=== PATIENT | male | born 1950 | race Caucasian/White ===

== ENCOUNTER 2020-03-21 09:55 | Emergency (ER) | payer MEDICARE, OTHER, SELFPAY ==
[2020-03-21 10:08] VITALS: BP 193/96; PULSE 66; RESP 15; TEMP 36.4; O2SAT 98; BMI 24.3
--- NOTE | 2020-03-21 10:14 | PC.NURSE ---
Back pain after lifting shrimp pot 3 days ago.
--- NOTE | 2020-03-21 10:21 | ED.BACK ---
HPI - Back Pain/Injury General Chief Complaint: Back Pain/Injury Stated Complaint: 3X DAYS BACK PAIN Time Seen by Provider: 03/21/20 10:21 Source: patient Limitations: no limitations History of Present Illness HPI Narrative: 69-year-old gentleman with a history tremors, hypertension and occasional low back pain presents 3 days after any back injury. He was on his boat, pulling up a shrimp pot and felt a pull/tug in his low back. Was not immediately debilitating but has gotten significantly worse over the last 72 hours. Ice has but somewhat helpful. He took 2 old Vicodin this morning and had no relief. Complains of severe low back pain radiating into both sides of his buttocks and then down his left leg. Describes no change to urine or bowel habits. No specific numbness or weakness. He does have an antalgic gait but is able to use both legs and has full strength on both sides. He denies any fevers, chills, abdominal pain, vomiting, diarrhea, chest pain, dyspnea, palpitations and no skin rashes or changes. Related Data Home Medications Medication Instructions Recorded Confirmed propranolol #0 03/05/16 Previous Rx's Medication Instructions Recorded hydrocodone-acetaminophen 0 tab PO Q6HP PRN #15 tab 03/05/16 ibuprofen 600 mg PO Q8HP PRN #20 tab 03/05/16 methocarbamol 500 mg PO QIDP PRN #14 tab 03/05/16 prednisone 40 mg PO [facility] 4 Days #0 tab 03/05/16 dexamethasone 10 mg PO DAILY #5 tab 03/21/20 oxycodone-acetaminophen 1 tab PO Q6H PRN #20 tab 03/21/20 polyethylene glycol 3350 [Miralax] 17 gram PO DAILY PRN #30 each 03/21/20 Allergies Allergy/AdvReac Type Severity Reaction Status Date / Time No Known Drug Allergies Allergy Verified 03/21/20 10:11 Review of Systems Review of Systems Narrative: Remainder of review of systems including constitutional, ENT, cardiovascular, respiratory, GI, , musculoskeletal, skin, neurologic and psychiatric systems reviewed and are unremarkable except as noted in HPI. Patient History Medical History Hypertension (Acute) Tremor (Acute) Social History Smoking Status: Unknown if ever smoked Smoking Status: Unknown if ever smoked alcohol intake frequency: a few times a week Substance Use Type: does not use Exam Narrative Exam Narrative: General: Alert appropriate in no acute distress Respiratory: Able to speak in full sentences, no obvious respiratory distress Skin: No obvious rashes, warm and dry Neurologic: Grossly intact no obvious asymmetries or abnormalities in upper extremities. Lower extremities he has 2+ symmetrical reflexes patellas and ankle jerks bilaterally. No sensory loss in is neurovascularly intact in lower extremities. Spine: Increasing tenderness over the lumbar spine without redness or specific midline point tenderness with bilateral lumbar paraspinous muscle spasm left greater than right. Low back pain is exacerbated by straight leg raising bilaterally left significantly more than right. He is able to stand with full strength on his left leg with stabilizing support as well as his right leg with stabilize. Psych, appropriate insight and affect, cooperative Initial Vital Signs Initial Vital Signs: Vital Signs Temperature 97.6 F 03/21/20 10:08 Pulse Rate 66 03/21/20 10:08 Respiratory Rate 15 03/21/20 10:08 Blood Pressure 193/96 H 03/21/20 10:08 Pulse Oximetry 98 03/21/20 10:08 Course Orders Ordered: Discontinued Medications Dexamethasone (Decadron) 10 mg PO NOW ONE Stop: 03/21/20 10:52 Ketorolac Tromethamine (Toradol) 30 mg IM NOW ONE Stop: 03/21/20 10:52 Vital Signs Vital signs: Vital Signs - 8 hr 03/21/20 10:08 Temperature 97.6 F Pulse Rate 66 Respiratory Rate 15 Blood Pressure 193/96 H Pulse Oximetry 98 MDM - Back Pain/Injury MDM Narrative Medical decision making narrative: Acute musculoskeletal back pain day 3 after injury. No red flags to suggest imaging would be appropriate. No suggestion of epidural abscess, cauda equinus syndrome or acute disc herniation. See discharge instructions for recommendations and medication prescribed. Patient safe for home discharge Discharge Plan Departure Patient Disposition: Home Clinical Impression: Acute back pain with radiculopathy Instructions: DI for Back Pain With Sciatica Activity Restrictions/Additional Instructions: Thank you for coming in today The description of your injury sounds very much like the usual type of low back pain with significant muscle spasm squeezing on nerves that she down your leg. You do not have any red flag warning signs for infection around your spine or anything that would need immediate surgery You are going to get better and today is likely going to be the worst pain that you are experiencing. It can take up to 6 weeks to get all the way back to baseline but you should feel significantly improved within 1 week. For severe inflammation I am going to have you take 3 days of Decadron, 10 mg daily. Your 1st dose was given in the emergency room today Using 400 mg of ibuprofen (2 [id number] pills) and 1 Tylenol every 6 hours can be very helpful in controlling moderate pain. For severe pain, using ibuprofen 400 mg and 1 Percocet can be helpful Percocet is a narcotic any should not drive or operate heavy machinery after taking a narcotic. Narcotics will also make you constipated. Any day that you take a Percocet I would also recommend 17 g, 1 cap full, of MiraLax in a large glass of water tea or coffee. Back pain is bad enough that you do not want to also be dealing with constipation Please [facility] your [facility]. If your pain is significantly improved then you can consider cancelling. If you are still hurting it is nice to know that you already have follow-up I hope you feel better Prescriptions: New dexamethasone 4 mg tablet 10 mg PO DAILY Qty: 5 RF: 0 oxycodone-acetaminophen 5-325 mg tablet 1 tab PO Q6H PRN (Reason: pain) Qty: 20 RF: 0 polyethylene glycol 3350 [Miralax] 17 gram powder in packet 17 gram PO DAILY PRN (Reason: constipation) Qty: 30 RF: 0 No Action methocarbamol 500 MG tablet 500 mg PO QIDP PRNQty: 14 RF: 0 hydrocodone-acetaminophen 5 MG/325 MG tablet 0 tab PO Q6HP PRNQty: 15 RF: 0 prednisone 20 MG tablet 40 mg PO [facility] 4 Days Qty: 0 RF: 0 ibuprofen 600 MG tablet 600 mg PO Q8HP PRNQty: 20 RF: 0 propranolol 10 mg tablet Qty: 0 RF: 0 Referrals: Anna Cerrato DO [Primary Care Provider] -
[2020-03-21] MEDS: dexAMETHasone 4 MG TABLET 10 MG PO (11:00)
[2020-03-21] MEDS: KETOROLAC 60 MG/2 ML VIAL 30 MG IM (11:00)
== END 2020-03-21 11:11 | disposition home or self-care (01) ==
PROVIDERS: Emergency Provider Emergency Medicine; PCP Family Medicine
DX: M54.16 Radiculopathy, lumbar region (principal); I10 Essential (primary) hypertension
CPT/HCPCS: 99283; J1885

== ENCOUNTER 2021-04-13 11:51 | Emergency (ER) | payer MEDICARE, OTHER, SELFPAY ==
[2021-04-13 11:59] VITALS: BP 204/102; PULSE 60; RESP 14; TEMP 36.4; O2SAT 98; BMI 25.4
--- NOTE | 2021-04-13 12:16 | ED_ITS ---
HPI - Dental/Oral General Chief complaint: Dental/Oral Stated complaint: Broken Tooth, Facial Swelling Left Side Time Seen by Provider: 04/13/21 12:08 Source: patient Mode of arrival: Ambulatory Limitations: no limitations History of Present Illness HPI Narrative: Patient complains of pain swelling to the left upper mouth. Had a root canal attempt 1 month ago with fractured tooth in [place]. Has not returned to the provider. Yesterday started with swelling to the left cheek. Denies any diabetes. No fever chills. No trouble breathing or swallowing. Blood pressure noted. He states his family doctor 1 month ago changed from lisinopril to propanolol. Denies any chest pain. No headache. No dyspnea no recent illness Teeth map: 1. Related Data Home Medications Medication Instructions Recorded Confirmed propranolol 10 mg tablet #0 03/05/16 Previous Rx's Medication Instructions Recorded hydrocodone 5 mg-acetaminophen 325 0 tab PO Q6HP PRN #15 tab 03/05/16 mg tablet ibuprofen 600 mg tablet 600 mg PO Q8HP PRN #20 tab 03/05/16 methocarbamol 500 mg tablet 500 mg PO QIDP PRN #14 tab 03/05/16 prednisone 20 mg tablet 40 mg PO [facility] 4 Days #0 tab 03/05/16 dexamethasone 4 mg tablet 10 mg PO DAILY #5 tab 03/21/20 oxycodone-acetaminophen 5 mg-325 1 tab PO Q6H PRN #20 tab 03/21/20 mg tablet polyethylene glycol 3350 17 gram 17 gram PO DAILY PRN #30 each 03/21/20 oral powder packet (Miralax) penicillin V potassium 500 mg 500 mg PO QID #40 tab 04/13/21 tablet Allergies Allergy/AdvReac Type Severity Reaction Status Date / Time No Known Drug Allergies Allergy Verified 04/13/21 11:58 Review of Systems Review of Systems Narrative: GENERAL: Denies chills, fatigue, malaise, fever, sweats. HEENT: Denies sinus pain, ear pain, sore throat, positive dental pain RESPIRATORY: Denies dyspnea, cough CARDIOVASCULAR: Denies chest pain, palpitations GASTROINTESTINAL: Denies nausea, vomiting, abdominal pain : Denies dysuria, frequency, hematuria MUSCULOSKELETAL: denies muscle or bony pain SKIN: Denies rash, skin lesions NEUROLOGIC: Denies weakness, numbness ROS Unobtainable: All systems reviewed & are unremarkable except as noted in HPI and below Patient History Medical History (Updated 04/13/21 @ 12:22 by Ariel De La Cruz MD) Hypertension Tremor Social History Smoking Status: Unknown if ever smoked Smoking Status: Unknown if ever smoked alcohol intake frequency: holidays/special occasions only Substance Use Type: does not use Exam Narrative Exam Narrative: GENERAL: in no distress, not toxic not dyspneic HEAD: Normocephalic. EYES: Pupils equal round No scleral icterus. ENT: Mucous membranes moist. Palpable tenderness above tooth 14. Tooth is fractured. Has dental caries as well. No fluctuance or abscess to drain. Mild left cheek edema. No tongue elevation. No drooling. Airway intact. Speaking full sentences NECK: Trachea midline. CARDIOVASCULAR: Regular rate and rhythm without murmurs RESPIRATORY: Clear to auscultation. Breath sounds equal bilaterally. No wheezes, rales, or rhonchi. NEURO: AOx4. SKIN: Warm and dry PSYCH: Not anxious, is cooperative Initial Vital Signs Initial Vital Signs: Vital Signs Temperature 97.6 F 04/13/21 11:59 Pulse Rate 60 04/13/21 11:59 Respiratory Rate 14 04/13/21 11:59 Blood Pressure 204/102 H 04/13/21 11:59 Pulse Oximetry 98 04/13/21 11:59 Course Course Course Narrative: No new issues during course of stay Orders Ordered: Discontinued Medications Lisinopril (Lisinopril 20 Mg Tablet) 20 mg PO NOW ONE Stop: 04/13/21 13:12 Last Admin: 04/13/21 13:21 Dose: 20 mg Documented by: SPIKE Penicillin V Potassium (Penicillin Vk 250 Mg Tablet) 500 mg PO NOW ONE Stop: 04/13/21 12:17 Last Admin: 04/13/21 12:40 Dose: 500 mg Documented by: WHITLEY Reevaluation(s) Reevaluation #1: Reviewed with patient blood pressure and needs to have re- evaluated by primary care. Reevaluation #2: Blood pressure remains elevated. However no chest pain headache. Patient states his lisinopril was better controlled. Informed him to stop the new beta-yelena and resume lisinopril at home over the weekend until office time Jef to recess with primary care physician. He was on lisinopril 20 mg a day. Agrees to try lisinopril here before discharge Reevaluation #3: Blood pressure is improving. After lisinopril. Patient does not want awaiting longer. Desires discharge home. In no distress. It is trending down words. / Time: 13:44 Vital Signs Vital signs: Vital Signs - 8 hr 04/13/21 11:59 04/13/21 13:06 04/13/21 13:42 Temperature 97.6 F Pulse Rate 60 63 63 Respiratory Rate 14 Blood Pressure 204/102 H 213/91 H 191/88 H Pulse Oximetry 98 97 98 MDM - Dental/Oral Differential Diagnosis Differential diagnosis: Likely gingival abscess, dental caries, dental abscess and fracture of tooth MDM Narrative Medical decision making narrative: Appropriate for discharge home. No fever. No imaging or blood work indicated. Not toxic. No incision drainage as early abscess likely. No fluctuance. Return precautions reviewed patient. Agrees with treatment plan. He understands we do not extract teeth here. At time of discharge blood pressure is improving with lisinopril. Patient understands to not continue with his new blood pressure medication. It appears to be having rebound effect. Paradoxical effect. He has not seen his family doctor since st arting the new blood pressure medication. He agrees with resuming his lisinopril instead until Thursday for office recheck. Discharge Plan Departure Patient Disposition: Home Clinical Impression: Dental abscess Instructions: Tooth Abscess Activity Restrictions/Additional Instructions: Call for dental office appointment on Thursday when dental office is open. Continue antibiotic tonight. May continue Tylenol or ibuprofen for pain. Return if worse if any trouble swallowing or breathing. You will likely need this tooth removed. However, will need a course of antibiotics before procedures. Prescription has been sent to your pharmacy. Be sure to get your blood pressure rechecked with her family doctor. Prescriptions: New penicillin V potassium 500 mg tablet 500 mg PO QID Qty: 40 RF: 0 No Action methocarbamol 500 MG tablet 500 mg PO QIDP PRNQty: 14 RF: 0 hydrocodone-acetaminophen 5 MG/325 MG tablet 0 tab PO Q6HP PRNQty: 15 RF: 0 prednisone 20 MG tablet 40 mg PO AMCC 4 Days Qty: 0 RF: 0 ibuprofen 600 MG tablet 600 mg PO Q8HP PRNQty: 20 RF: 0 propranolol 10 mg tablet Qty: 0 RF: 0 dexamethasone 4 mg tablet 10 mg PO DAILY Qty: 5 RF: 0 oxycodone-acetaminophen 5-325 mg tablet 1 tab PO Q6H PRN (Reason: pain) Qty: 20 RF: 0 polyethylene glycol 3350 [Miralax] 17 gram powder in packet 17 gram PO DAILY PRN (Reason: constipation) Qty: 30 RF: 0 Referrals: Anna Cerrato DO [Primary Care Provider] -
[2021-04-13] MEDS: PENICILLIN VK 250 MG TABLET 500 MG PO (12:40)
[2021-04-13 13:06] VITALS: BP 213/91; PULSE 63; O2SAT 97
[2021-04-13] MEDS: lisinopriL 20 MG TABLET PO (13:21)
[2021-04-13 13:42] VITALS: BP 191/88; PULSE 63; O2SAT 98
== END 2021-04-13 13:44 | disposition home or self-care (01) ==
PROVIDERS: Emergency Provider Emergency Medicine; PCP Family Medicine
DX: K04.7 Periapical abscess without sinus (principal)
CPT/HCPCS: 99283

== ENCOUNTER → 2021-05-03 13:19 | Outpatient (CLI) | payer MEDICARE, OTHER, SELFPAY ==
--- NOTE | 2021-05-03 13:22 | DI.RAD.S_ITS ---
PROCEDURE: FL BARIUM SWALLOW W SPEECH INDICATIONS: Dysphagia, unspecified COMPARISON: TECHNIQUE: Examination was conducted in conjunction with speech pathology per standard protocol. In the lateral projection, filming was performed of the patient swallowing. AP projection filming may also be performed with patient swallowing. COMPARISON: [facility], CR, SPINE LUMB 2 OR 3VW, 03/12/2016, 9:32. FINDINGS: Function: The oral preparatory phase appears normal, with proper containment. The subsequent oral propulsive phase, pharyngeal phase, and esophageal phase of swallowing also appear normal with all proffered substances. No laryngotracheal penetration or aspiration. No pathologic vallecular pooling. Morphology: No cricopharyngeal bar is identified. No cervical esophageal webs. No Zenker's diverticulum. No strictures. IMPRESSION: Low laryngeal penetration or aspiration. Please see separate speech pathologist's report for detail. Dictated by: Saranya Guthrie M.D. on 05/03/2021 at 14:32 Approved by: Saranya Guthrie M.D. on 05/03/2021 at 14:33
--- NOTE | 2021-05-07 15:19 | ST.SWALLOW ---
Visit Care Team Role Provider Type Anna Cerrato DO Primary Care Provider Non-Staff Specialty: Medical Address: [address] [place] [address], [id number] Email: Donny Hair MD Family Provider Non-Staff Specialty: Medical Address: [address] [place] [address], [phone] Email: Vipin Bedolla MD Attending Provider Physician Referring Provider Specialty: Ear, Nose, Throat Address: [address] [place] [address], [id number] Email: [email or web address] Modified Barium Swallow Study GORE SEAMER Modified Barium Swallow Study Start: 05/06/21 12:30 Freq: Status: Active Protocol: Document 05/03/21 16:32 LNK (Rec: 05/06/21 17:09 LNK [id number]) Modified Barium Swallow Study Total Time Visit Start Time 13:30 Visit Stop Time 14:00 Total Visit Minutes [address] Bedolla, ENT Reason for Referral dysphagia Setting Setting Outpatient Care Patient Information Identification Type Name,Date of Patient History Pt was seen for a Modified Barium Swallow Study with c/o difficulty with swallowing, increased coughing and increased phlegm in his throat after coughing. He reported that he has noticed this difficulty over the past couple of months and describes it as going down the wrong way. Pt was recently seen in the ED for an abcessed tooth. He was prescribed antibiotic treatment and reported that his tooth is better. Pt denies a medical history of GERD, head/neck injuries or surgery and neurological diagnoses. When the pt is swallowing, he described a sensation of globus in the area near his sternum. He has difficulty with both liquids and solids. Subjective Observations Pt was seated in the fluorsopy chair. Procedures and instructions were provided for the pt, who indicated he understood and agreed to proceed. Patient Positioning Position View Lat-A/P Imaging Lateral View Textures Administered Trials Presented Thin Liquid via Spoon,Thin Liquid via Cup,Pudding Thick Liquid via Spoon,Regular Textures,Barium Tablet Oral Phase Source: MBSIMP (TM) (C) Bolus Specific Scoring Grid Lip Closure WFL Tongue Control During Bolus Hold WFL Bolus Prep/Mastication WFL Bolus Transport/Lingual Motion WFL A/P Lingual Propulsion Delay No Oral Residue WFL Residue Clearing WFL Nasal Regurgitation No Additional Oral Phase Observations OME indicated structures, strength and ROM to be WNL. Pt 's dentition was adequate for mastication. He pointed out the tooth that is abcessed, which looked decayed and/or broken. DKS was normal. Speech was 100% intelligibile. Pharyngeal Phase Source: MBSIMP (TM) (C) Bolus Specific Scoring Grid Delayed Initiation of Pharyngeal Swallow Yes: premature spillage to the pyriform sinuses was noted across all trials Soft Palate Elevation Mild Impairment Tongue Base Strength/Range of Motion Mild Impairment Residue Along the Tongue Base Yes Clearance of Residue Along Tongue Base Minimal Impairment Laryngeal Elevation Mild Impairment Anterior Hyoid Movement Moderate Impairment Epiglottic Range of Motion Moderate Impairment Vallecular Residue Yes Clearance of Vallecular Residue Mild Impairment Laryngeal Vestibular Closure Mild Impairment Pharyngeal Stripping Wave Mild Impairment Posterior Pharyngeal Wall Residue Yes Clearance of Posterior Pharyngeal Wall Minimal Impairment Residue Upper Esophageal Sphincter Opening Mild Impairment Residue in the Pyriform Sinuses Yes Clearance of Residue in the Pyriform Mild Impairment Sinuses Esophageal Clearance Upright Position Minimal Impairment Pharyngoesophageal Backflow Observed No Additional Pharyngeal Phase Observations Pre-swallow, there was premature spillage from the valeculla across an open airway to the pyriform sinuses . Laryngeal elevation was mildly reduced. The forward movement of the hyoid was not observed. The reduced laryngeal elevation and lack of hyoid movement directly impacted epiglottal inversion. The epiglottis did not invert across all liquid trials ( teaspoonsful to 3 consecutive swallows without stopping). With the pudding thick and the regular textures the epiglottis was observed to be horizontal on the pharynx. Complete inversion was not observed. Because the epiglottis did not completely invert, minimal linguapharyngeal contact occured affecting the stripping wave of the posterior pharyngeal wall, resulting in mild-moderate pharyngeal residue. The residue was consistent throughout the MBSS. Additionally, residue was noted in the velopharyngeal space, indicating incomplete seal during swallowing. A/P View Textures Administered Trials Presented Barium Tablet A/P View Observations Pharyngeal Contraction No Impairment (WNL) Vocal Fold Function Good Residue Observed Valleculae Right,Valleculae Left,Pyriform Sinus Right, Pyriform Sinus Left Esophageal Function Narrowing Esophageal Clearance Upright Position Mild Impairment Additional Observations An A/P esophageal screen was conducted. There were osteophytes noted to be at the level of the UES (C5-C6,C6-C7 ), which narrowed the UES opening. The osteophytes altered/narrowed the esophagus . The flow of the bolus was altered but not impeded. Clinical Impressions Dysphagia Type pharyngeal and esophageal Rehabilitation Potential Good Patient Appropriate for Therapy Yes Recommendations Treatment Plan Therapy Recommendations Outpatient Speech Therapy, Lingual Exercises,Base of Tongue Exercises,Compensatory Strategy Education Recommended Referrals GI Consult
== END ==
PROVIDERS: PCP Family Medicine; Referring Provider Otolaryngology; Visit Provider Otolaryngology
DX: R13.10 Dysphagia, unspecified (principal)
CPT/HCPCS: 74230; 92611